=== PATIENT | female | born 1980 | race Caucasian/White ===

== ENCOUNTER 2024-02-07 15:23 | Outpatient (CLI) | payer OTHER, SELFPAY | END 2024-02-07 15:24 | disposition home or self-care (01) | LOC: SLEEP 15:24 | PROVIDERS: Visit Provider Otolaryngology | DX: G47.19 Other hypersomnia (principal) | CPT/HCPCS: 95806 ==

== ENCOUNTER 2024-08-24 08:14 | Outpatient (CLI) | payer OTHER, SELFPAY | END 2024-08-24 08:15 | disposition home or self-care (01) | LOC: NFLDREF 08-31 22:11 | DX: R30.9 Painful micturition, unspecified (principal) | CPT/HCPCS: 87086 ==